=== PATIENT | female | born 1960 | race Caucasian/White ===

== ENCOUNTER → 2017-02-22 | Outpatient (CLI) | payer MEDICARE ==
--- NOTE | 2017-02-22 14:08 | MAM ---
Symptoms left hours is working History: Well woman exam. Date of exam: 02/22/2017 Services provided: Bilateral full field digital screening mammography. CAD, the images were reviewed with R2 computer aided detection. FINDINGS: Glandular tissue is scattered glandular contour. No dominant mass, architectural distortion or clustered microcalcification. No prior study for comparison. IMPRESSION: Benign exam Recommendation: Routine annual mammography BIRAD CATEGORY: 2 BENIGN Electronically signed by: Maureen Geronimo MD 02/22/2017 2:08 PM CDT
== END | disposition home or self-care (01) ==
LOC: MAMMO 11:38
PROVIDERS: ATTEND General Practice
DX: Z12.31 Encounter for screening mammogram for malignant neoplasm of breast (principal)